=== PATIENT | female | born 1970 | race Caucasian/White ===

== ENCOUNTER → 2017-06-03 | Outpatient (CLI) | payer OTHER | END | disposition home or self-care (01) | LOC: KCIC MAMMO 10:19 | PROVIDERS: ATTEND Family Medicine | DX: Z12.31 Encounter for screening mammogram for malignant neoplasm of breast (principal) | CPT/HCPCS: G0202; 77067 ==

== ENCOUNTER → 2018-05-25 | Outpatient (CLI) | payer OTHER ==
[2018-05-25] MEDS: IOHEXOL 240 MG/ML 50ML VIAL. PO (09:35)
[2018-05-25] MEDS: IOHEXOL 300 MG/ML 100ML VIAL. IV (09:35)
== END | disposition home or self-care (01) ==
LOC: KCIC CT 08:34
DX: K76.0 Fatty (change of) liver, not elsewhere classified (principal)
CPT/HCPCS: 74177; Q9966; Q9967

== ENCOUNTER → 2019-03-08 | Outpatient (CLI) | payer OTHER ==
[~2019-03-08] MED LIST: DULO20CA PO; FLUT9.9S NS
--- NOTE | 2019-03-09 08:54 | KCIC ---
BILATERAL SCREENING MAMMOGRAM, 3-D History: Routine screening. Comparison: Bilateral mammogram 06/03/2017 at 2015. Technique: MLO and CC digital tomosynthesis (3D) images obtained. Radiologist reviewed these images on dedicated workstation. Findings: Breast Tissue Density B : There are scattered areas of fibroglandular density. There are 2 tiny well-circumscribed masses in the left breast near the 12:00 position at mid depth, MLO slice 39, CC slice 39. There are no suspicious microcalcifications or architectural distortion. IMPRESSION: 2 tiny masses in the left breast near the 12:00 position. Recommend further evaluation with ultrasound. BI-RADS Category 0: Incomplete: Need additional imaging evaluation. The images were reviewed with computer-aided detection. Patient information is entered into reminder system with a target due date for the next screening mammogram. Mammography is the most sensitive method for finding small breast cancers, but it does not detect them all and is not a substitute for careful clinical examination. A negative mammogram does not negate a clinically suspicious finding and should not result in delay in biopsying a clinically suspicious abnormality. "Our facility is accredited by the [employer] Mammography [employer]." Electronically signed by: Giovani Guzmán MD (03/09/2019 8:51 AM) [id number]
== END | disposition home or self-care (01) ==
LOC: KCIC MAMMO 12:48
PROVIDERS: ATTEND Family Medicine
DX: Z12.31 Encounter for screening mammogram for malignant neoplasm of breast (principal); N63.21 Unspecified lump in the left breast, upper outer quadrant
CPT/HCPCS: 77063; 77067

== ENCOUNTER → 2019-03-22 | Outpatient (CLI) | payer OTHER ==
--- NOTE | 2019-03-22 10:31 | KCIC ---
Left breast ultrasound: Reason for examination: Parenchymal density on screening mammogram. Comparison is made to mammographic exam dated 03/08/2019. Ultrasound examination of the left breast was performed with attention to the area of mammographic concern and at the left axilla. In the 12:00 position 4 cm from the nipple, there are 2 small hypoechoic fibrocystic type lesions measuring 3.5 and 2.7 mm in greatest dimension with an additional hypoechoic fibrocystic type lesion at the 12:00 position 5 cm from the nipple measuring 2.7 mm in greatest dimension. No other cystic or solid lesions are seen. No abnormal appearing lymph nodes are seen in the axilla. IMPRESSION: Small benign-appearing fibrocystic type lesions at the 12:00 position measuring up to 3.5 mm in greatest dimension. No suspicious-appearing lesion seen. Recommend 6 month follow-up with ultrasound. BI-RADS Category 3: Probably Benign. "Our facility is accredited by the [employer] Mammography [employer]." This patient's information has been entered into a reminder system for the patient to be notified with the results of her examination and a target date for the next mammogram. Electronically signed by: Nellie Gonzalez MD (03/22/2019 10:28 AM) [id number]
== END | disposition home or self-care (01) ==
LOC: KCIC US 09:43
PROVIDERS: ATTEND Family Medicine
DX: N64.89 Other specified disorders of breast (principal)
CPT/HCPCS: 76641

== ENCOUNTER → 2019-09-24 | Outpatient (CLI) | payer OTHER ==
--- NOTE | 2019-09-24 09:38 | KCIC ---
Left breast ultrasound: Reason for examination: Follow-up nodules. Comparison is made to previous study dated 03/22/2019. Ultrasound examination of the left breast and axilla was performed. There continues to be a small 2.7 mm cystic lesion at the 2:00 position 4 cm from the nipple. The additional lesions are no longer identified. No other cystic or solid lesions are seen. No abnormal appearing lymph nodes are seen in the axilla. IMPRESSION: Small cyst at the 12:00 position 4 cm from the nipple. Improvement when compared to the previous examination. Recommend routine mammographic follow-up. BI-RADS Category 2: Benign. "Our facility is accredited by the [employer] Mammography Program." This patient's information has been entered into a reminder system for the patient to be notified with the results of her examination and a target date for the next mammogram. Electronically signed by: Nellei Gonzalez MD (09/24/2019 9:35 AM) [id number]
== END | disposition home or self-care (01) ==
LOC: KCIC US 08:09
PROVIDERS: ATTEND Family Medicine
DX: N60.02 Solitary cyst of left breast (principal)
CPT/HCPCS: 76641

== ENCOUNTER → 2020-08-14 | Outpatient (CLI) | payer OTHER ==
--- NOTE | 2020-08-14 10:41 | KCIC ---
Bilateral digital screening mammograms with 3-D tomosynthesis: Reason for examination: Routine screening. Comparison is made to previous studies dated back to 09/10/2015. Bilateral mammograms in CC and oblique projections were obtained with 2-D imaging and 3-D tomosynthesis imaging on a Siemens Inspiration unit and reviewed on the workstation. Interpretation was made with the benefit of CAD. The skin and nipples show no abnormalities. No abnormal axillary lymph nodes are seen. The breast parenchyma shows scattered fatty and fibroglandular density. (Breast density: Category B.) There continues to be a small nodular density in the lower inner quadrant of the right breast at the 5:00 C position which is stable. There also continue to be 2 small nodular densities at approximately the 12:00 B position of the left breast which are stable. In the left breast however there are additional new nodules present at the 3:00 position laterally approximately 8 cm from the nipple and measuring 7 mm in size and in the 6:00 position 3 cm posterior to the nipple and measuring approximately 4 mm in size. Further evaluation with ultrasound is recommended. No suspicious appearing calcifications are seen. Impression: New nodules in the left breast at the 3:00 position 8 cm from the nipple measuring 7 mm in size and at the 6:00 position 3 cm from the nipple measuring 4 mm in size. Recommend further evaluation with ultrasound. BI-RAD Category 0: Incomplete. Needs additional imaging evaluation. "Our facility is accredited by the [employer] Mammography Program." This patient's information has been entered into a reminder system for the patient to be notified with the results of her examination and a target date for the next mammogram. Electronically signed by: Nellie Gonzalez MD (08/14/2020 10:38 AM) [facility]
== END | disposition home or self-care (01) ==
LOC: KCIC MAMMO 08:57
PROVIDERS: ATTEND Family Medicine
DX: Z12.31 Encounter for screening mammogram for malignant neoplasm of breast (principal); N64.89 Other specified disorders of breast
CPT/HCPCS: 77063; 77067

== ENCOUNTER → 2020-09-02 | Outpatient (CLI) | payer OTHER ==
--- NOTE | 2020-09-02 13:11 | KCIC ---
Left breast ultrasound: Reason for examination: Nodular densities on screening mammogram. Comparison is made to mammographic exam dated 08/14/2020. Ultrasound examination of the left breast was performed in the areas of mammographic concern and at the axilla. In the 3:00 position 7 cm from the nipple, there is a 5.9 mm hypoechoic circumscribed lesion with no vascular flow which has a fibrocystic appearance. At the 6:00 position 3 cm from the nipple, there is also a 3.8 mm hypoechoic fibrocystic type lesion with no vascular flow. No suspicious nodules are seen. No abnormal appearing lymph nodes are seen in the left axilla. IMPRESSION: Small fibrocystic lesions at the 3:00 and 6:00 positions of the left breast which correspond to the areas of mammographic concern. No suspicious abnormalities are seen. Recommend 6 month follow-up with ultrasound. BI-RADS Category 3: Probably Benign. "Our facility is accredited by the [employer] Mammography [employer]." This patient's information has been entered into a reminder system for the patient to be notified with the results of her examination and a target date for the next mammogram. Electronically signed by: Nellie Gonzalez MD (09/02/2020 1:08 PM) [email or web address]
== END ==
LOC: KCIC US 12:43
PROVIDERS: ATTEND Family Medicine
DX: R92.8 Other abnormal and inconclusive findings on diagnostic imaging of breast (principal)
CPT/HCPCS: 76641

== ENCOUNTER → 2021-03-04 | Outpatient (CLI) | payer OTHER ==
--- NOTE | 2021-03-04 10:00 | KCIC ---
Left breast ultrasound: Reason for examination: Follow-up nodules. Comparison is made to previous study dated 09/02/2020. Left breast ultrasound including the axillary regions of the left breast was performed. At the 3:00 position 7 cm from the nipple, there continues to be a 7.4 mm hypoechoic circumscribed le ace consistent with a probable cyst which shows a slight increase in size. At the 6:00 position 3 cm from the nipple, there continues to be a small hypoechoic circumscribed lesion measuring 3.5 mm in g reatest dimension which is stable. No abnormal appearing lymph nodes are seen in the axilla. IMPRESSION: Slight increase in size of the cystic-appearing lesion at the 3:00 position. Stable nodule at the 6:0 0 position. Recommend continued 6 month follow-up with ultrasound at the time of bilateral mammograms . BI-RADS Category 3: Probably Benign. "Our facility is accredited by the [employer] Mammography Program." This patient's information has been entered into a reminder system for the patient to be notified wit h the results of her examination and a target date for the next mammogram. Electronically signed by: Nellie Gonzalez MD (03/04/2021 9:57 AM) [email or web address]
== END ==
LOC: KCIC US 08:08
PROVIDERS: ATTEND Family Medicine
DX: N60.02 Solitary cyst of left breast (principal)
CPT/HCPCS: 76641

== ENCOUNTER → 2021-09-15 | Outpatient (CLI) | payer OTHER ==
--- NOTE | 2021-09-15 14:41 | KCIC ---
Bilateral diagnostic digital mammograms with 3-D tomosynthesis: Reason for examination: Follow-up nodules. Comparison is made to previous studies dated back to 09/10/2015. Bilateral mammograms in CC and oblique projections were obtained with 2-D imaging and 3-D tomosynthes is imaging on a Siemens Inspiration unit and reviewed on the workstation. Interpretation was made wit h the benefit of CAD. The skin and nipples show no abnormalities. No abnormal axillary lymph nodes are seen. The breast par enchyma shows scattered fatty and fibroglandular density. (Breast density: Category B.) There appears to be a small circumscribed nodule at the 4:00 position posteriorly in the right breast. There johan nue to be small nodules at the 3:00 and 6:00 position of the left breast as well as at the 11:00 B po sition which are stable. There are no other new dominant masses, suspicious calcifications or archite ctural distortion. Impression: Small nodules bilaterally. Ultrasound to follow. BI-RAD Category 0: Incomplete. Needs additional imaging evaluation. Bilateral breast ultrasound: Comparison is made to previous ultrasound examinations of the left breast dated 03/04/2021, 09/02/2020 and 03/22/2019. Ultrasound examination was performed bilaterally of the breasts and axilla. In the right breast at the 4:00 position 8 cm from the nipple, there is a 7.9 mm hypoechoic circumscr ibed lesion in parallel orientation consistent with a small fibroadenoma. No other cystic or solid no dules are seen. No abnormal appearing lymph nodes are seen axilla. In the left breast at the 3:00 position 7 cm from the nipple, there is a 5.3 mm hypoechoic circumscri bed lesion which is shown interval decrease in size. At the 6:00 position 3 cm from the nipple, there continues to be a small 3.5 mm hypoechoic fibrocystic lesion which is stable. At the 11:00 position 4.5 mm from the nipple, there is a small cluster circumscribed are persistent nodules with the larges t measuring approximately 3 mm in greatest dimension. These nodules appear to be stable no suspicious -appearing nodules are seen. No abnormal appearing lymph nodes are seen in the axilla. IMPRESSION: Small 7.9 mm nodule in the 4:00 position of the right breast which probably represents a fibroadenoma . Recommend 6 month follow-up with ultrasound. Benign-appearing fibrocystic nodules in the left breast which appear to be stable. Recommend routine mammographic follow-up. BI-RADS Category 3: Probably Benign. "Our facility is accredited by the [employer] Mammography Program." This patient's information has been entered into a reminder system for the patient to be notified wit h the results of her examination and a target date for the next mammogram. Electronically signed by: Nellie Gonzalez MD (09/15/2021 2:38 PM) [email or web address]
== END ==
LOC: KCIC MAMMO 12:43
PROVIDERS: ATTEND Family Medicine
DX: Z09 Encounter for follow-up examination after completed treatment for conditions other than malignant neoplasm (principal); R92.8 Other abnormal and inconclusive findings on diagnostic imaging of breast; N63.42 Unspecified lump in left breast, subareolar; N63.22 Unspecified lump in the left breast, upper inner quadrant
CPT/HCPCS: 76641; 77066; G0279; 77062